=== PATIENT | female | born 1945 | race African-American/Black ===

== ENCOUNTER → 2023-08-16 14:25 | Outpatient (REF) | payer MEDICARE, SELFPAY | LOC: WDC 14:25 | PROVIDERS: ATTENDING PHYSICIAN Internal Medicine Hematology & Oncology; FAMILY PHYSICIAN Family Medicine | DX: Z12.31 Encounter for screening mammogram for malignant neoplasm of breast (principal); Z85.3 Personal history of malignant neoplasm of breast; C50.212 Malignant neoplasm of upper-inner quadrant of left female breast; C85.98 Non-Hodgkin lymphoma, unspecified, lymph nodes of multiple sites | CPT/HCPCS: 77063; 77067 ==

== ENCOUNTER 2023-12-11 11:17 | Emergency (ER) | payer MEDICARE, SELFPAY ==
[2023-12-11 11:18] VITALS: BP 129/96
[2023-12-11 11:31] VITALS: BMI 27.8
--- NOTE | 2023-12-11 11:33 | ED.GENMED ---
History of Present Illness
General
Chief Complaint: Headache
Time Seen by Provider: 12/11/23 11:30
History of Present Illness
History of Present Illness:
HPI: The patient presents with a headache that started about 24 hours ago. She was at [place] visiting her son when it started. The pain is described as a 'gnawing' around the left eye. She has had a remote history of migraines but this did not
feel like a migraine to her. She had some tingling in the distal extremities but she has had similar episodes in the past regarding the paresthesias. This is associated with nausea. She has some mild photophobia as well.
EXAM:
GENERAL: The patient appears in mild distress
HEENT: Moist oral mucosa
CARDIOVASCULAR: No murmurs, normal heart rate, regular rhythm, No chest wall tenderness
PULMONARY: No respiratory distress, breath sounds are clear and equal
ABDOMEN: Soft with no peritoneal signs, no tenderness
NEUROLOGIC: Excellent strength all extremities, no coordination deficits with excellent finger-nose testing, no sensory deficits
PSYCHIATRIC: Appropriate mental status, normal insight and judgement
EXTREMITIES: Nontender, no edema, moves all extremities equally
SKIN: No rash, no lesions
TIME OF INITIAL ENCOUNTER:
NUMBER AND COMPLEXITY OF PROBLEMS ADDRESSED AT THE ENCOUNTER
� Chronic conditions affecting care: History of diverticular disease, remote history of migraines
� Acute Exacerbation and/or Progression of Chronic Illness: This is an acute problem
� Differential Diagnosis includes: Intracranial hemorrhage, migraine, nonspecific headache, giant cell arteritis
AMOUNT AND/OR COMPLEXITY OF DATA TO BE REVIEWED AND ANALYZED
� I performed an independent evaluation of and my interpretation is:
EKG:
CT: CT of the brain shows no acute abnormality
X-rays:
Laboratory Studies: Sed rate is 15 therefore highly doubt giant cell arteritis, chemistries relatively unremarkable however the bicarb is slightly high at 33, CBC unremarkable
Other:
� Review of other/old records: The patient had colonoscopy in 2021
� Clinical information was obtained by an independent historian: Spoke to the at bedside
� Prescriptions/Medications Considered but not given:
� Further testing considered but not performed:
RISK OF COMPLICATIONS AND/OR MORBIDITY OR MORTALITY OF PATIENT MANAGEMENT
� Social determinants of health affecting care: Lives at home
� Discussion with other providers:
� Escalation of care including admission/observation vs risk of discharge considered: Brain CT does not show any acute abnormality and sed rate is low therefore doubt giant cell arteritis. The patient was given Reglan with
Benadryl along with Tylenol and on reassessment at 1 PM, she feels markedly improved.
Past History
Past History
ED Past Medical History: Other (Diverticulitis)
ED Past Surgical History: None
Social History
Tobacco: Non-smoker
Alcohol: Occasional
Personal:
Phy Exam
Physical Exam
Physical Exam:
See HPI
Course
Orders/Labs/Results
Orders:
Orders
12/11/23 11:39
CT Head W/o Iv Contrast Urgent
Comment:
Reason For Exam: new severe MUNOZ
12/11/23 11:41
0.9% Sodium Chloride 1000 ml [Nss] 1,000 ml IV BOLUS
Acetaminophen [Tylenol] 1,000 mg PO NOW STA
Diphenhydramine [Benadryl] 25 mg IV NOW STA
Metoclopramide [Reglan] 10 mg IV NOW STA
12/11/23 11:44
Basic Metabolic Panel Urgent
CBC/With ESR Urgent
Abnormal Lab Results
12/11/23
11:44
Hct 36.9 L %
(37.0-47.0)
MCV 75.9 L fL
(81.0-99.0)
MPV 10.6 H fL
(7.4-10.4)
Carbon Dioxide 33 H mmol/L
(22-30)
Glucose 118 H mg/dl
(70-99)
Calcium 10.6 H mg/dl
(8.4-10.2)
12/11/23 11:44
12/11/23 11:44
Vital Signs
Initial and Last Documented VS:
Initial Vital Signs
Temp Pulse Resp BP Pulse Ox
98.1 F 94 18 129/96 100
12/11/23 11:18 12/11/23 11:18 12/11/23 11:18 12/11/23 11:18 12/11/23 11:18
Last Documented Vital Signs
Temp Pulse Resp BP Pulse Ox
98.1 F 92 9 131/84 98
12/11/23 11:18 12/11/23 12:11 12/11/23 12:11 12/11/23 11:39 12/11/23 11:39
*Critical Care Note
Total Time (30-74mins, 75-104mins- exclusive of procedures): Not Applicable
ED Attending Note
-
Portions of this chart may have been created with voice recognition software.� Occasional wrong word or��sound alike� substitutions may have occurred due to the inherent limitations of voice recognition software.
Discharge Plan
Departure
Patient Disposition: Home (Routine Discharge)
Date of Disposition: 12/11/23
Time of Disposition: 13:00
Patient with high blood pressure during this ER visit?: Yes
Discharge Problem:
Headache
Prescriptions:
No Action
cyanocobalamin (vitamin B-12) 1,000 MCG tablet
1,000 mcg PO DAILY
Referrals:
Hector Abbasi MD [Active] - Follow up in 2-3 days
Butch Gamble MD [Family Provider] -
Activity Restrictions/Additional Instructions:
The cause of your symptoms is unclear but may be related to migraine as you did have some associated nausea and the lights were bothering you. We did give Reglan with Benadryl along with some Tylenol. Continue Tylenol for pain. I have given the
contact information for local neurologist as well.
Interventions
Interventions:
*Risk Screen - Suicide Last Done: 12/11/23 11:33
*General Assessment Last Done: 12/11/23 11:33
*Neglect/Abuse Screening Last Done: 12/11/23 11:33
ED- Fall Risk Assessment Last Done: 12/11/23 11:33
*ED COVID-19 Vaccine History Last Done: 12/11/23 11:33
ED- Neurological Assessment Last Done: 12/11/23 11:34
Discharge Date and Time
Print Language: UPPER [place]OR[place]
[2023-12-11 11:39] VITALS: BP 131/84
[2023-12-11] MEDS: REGLAN 10 MG IV (11:45)
[2023-12-11] MEDS: NSS 1000 IV (11:45)
[2023-12-11] MEDS: TYLENOL 1000 MG PO (11:45)
[2023-12-11] MEDS: BENADRYL 25 MG IV (11:45)
[2023-12-11 12:08] LABS: % Basophils 0.8 % (0-2); % Eosinophils 2.4 % (0-6); % Immature Granulocytes 0.4 % (0-0.5); % Lymphocytes 29.3 % (20.5-51.1); % Monocytes 8.1 % (1.7-9.3); Absolute Eosinophils 0.1 10^3/uL (0-0.7); Absolute Lymphocytes 1.5 10^3/uL (1.2-3.4); Absolute Monocytes 0.4 10^3/uL (0.1-0.6); Absolute Neutrophils 2.9 10^3/uL (1.4-6.5); Hematocrit 36.9 % (37.0-47.0); Hemoglobin 13.3 g/dL (12.0-16.0); Mean Corpuscular Hgb 27.4 pg (27.0-31.0); Mean Corpuscular Volume 75.9 fL (81.0-99.0); Mean Platelet Volume 10.6 fL (7.4-10.4); Nucleated Red Blood Cells % 0 %; Platelet Count 306 10^3/uL (130-400); Red Blood Cell Count 4.86 10^6/uL (4.20-5.40); Red Cell Dist. Width 13.1 % (11.5-14.5)
[2023-12-11 12:12] VITALS: BP 128/89
[2023-12-11 12:22] LABS: Blood Urea Nitrogen 8 mg/dl (7-17); Calcium 10.6 mg/dl (8.4-10.2); Carbon Dioxide 33 mmol/L (22-30); Chloride 101 mmol/L (98-107); Estimated Creatinine Clearance 50 ml/min; Glucose 118 mg/dl (70-99); Potassium 4.3 mmol/L (3.5-5.1); Sodium 144 mmol/L (135-145); eGFR > 60.00
[2023-12-11 12:42] LABS: Erythrocyte Sed Rate 15 mm/hour (0-20)
[2023-12-11 13:00] VITALS: BP 123/78
== END 2023-12-11 13:30 | disposition home or self-care (01) ==
LOC: EMR 11:17
PROVIDERS: EMERGENCY PHYSICIAN Emergency Medicine; FAMILY PHYSICIAN Family Medicine
DX: R51.9 Headache, unspecified (principal); R11.0 Nausea
CPT/HCPCS: 99284; 96374; 96375; 96361; 70450; 80048; 85025; 85652

== ENCOUNTER 2024-04-22 14:57 | Emergency (ER) | payer MEDICARE, SELFPAY ==
[2024-04-22 15:11] VITALS: BP 140/78
--- NOTE | 2024-04-22 15:13 | ED.GENMED ---
ED Provider Triage
-
Patient seen by provider in Triage?: Seen in Triage
Attestation: A medical screening examination has been initiated by a qualified medical provider. Based on the assessment performed at this time, it has been determined that an emergent medical condition may exist and the patient has been informed
that further medical evaluation and possible additional diagnostic testing may be needed.
HPI: 79-year-old female presenting to the ER with approximately 1 week of cold and upper respiratory like symptoms. Was recently traveling on a cruise. Unsure of any fevers. Also notes some pain underneath the left breast that seems to be
spasmodic and worse with movement. Hemodynamically stable. COVID, flu and chest x-ray ordered. EKG as well given the left-sided rib pain.
GENERAL: Alert , in no apparent distress
EYE: No visual abnormalities.
NECK: Trachea midline
ENT: No visible abnormalities.
LUNGS: No acute respiratory distress
NEUROLOGICAL: Alert and oriented
SKIN: Skin intact. No visible changes.
MUSCULOSKELETAL: Moving extremities normally
PSYCH: Normal and appropriate interaction.
This is a medical evaluation conducted in person to initiate diagnostic evaluation and provide initial therapeutics. Please see further documentation by the treating clinician.
History of Present Illness
General
Chief Complaint: Cold/Flu/URI Symptoms
Source: patient
Time Seen by Provider: 04/22/24 16:00
History of Present Illness
History of Present Illness:
79-year-old female with past medical history of breast cancer presenting to the emergency department for evaluation of cough, body aches, nausea, nasal congestion, sore throat, nausea and generally feeling unwell. She states today she started to
notice some discomfort around the left lateral rib area especially with movement and worse with coughing. Patient notes that she was recently on a cruise but is otherwise unaware of any other sick contacts. Denies any lower extremity edema or
hemoptysis. Patient is unsure of fevers but tactilely believe she likely had 1.
Past History
Past History
ED Past Medical History: Cancer and Other (Diverticulitis)
ED Past Surgical History: None
Social History
Tobacco: Non-smoker
Alcohol: Occasional
Drug: None
Personal:
Living: with family
Review of Systems
Review of Systems
All Other Systems: ROS reviewed and negative except as documented in HPI and ROS
Phy Exam
Physical Exam
Physical Exam:
GENERAL: Alert , in no apparent distress, intermittent nonproductive cough, ill-appearing but nontoxic
HEAD: NCAT
EYE: conjunctiva mildly injected
NECK: Supple
ENT: o/p clr, mmm.
CARDIAC: Regular rate and rhythm
LUNGS: Clear breath sounds bilaterally, no acute respiratory distress, no wheezes/rales/rhonchi
NEUROLOGICAL: Alert and oriented
SKIN: Warm and dry, skin intact.
MUSCULOSKELETAL: well perfused.
PSYCH: Normal and appropriate interaction.
Scores
Heart Failure Risk
Heart Failure Risk Score: Not Applicable
Heart Score for Chest Pain Patients
STEMI patient?: Not applicable
Withdrawal Assessment of Alcohol
Withdrawal Assessment Completed?: Not applicable
Course
Orders/Labs/Results
Orders:
Orders
04/22/24 15:12
Electrocardiogram (*1) Urgent
Reason for Study: Chest Pain
EKG- Treatment ONCE
04/22/24 15:21
COVID-19 Antigen Urgent
Source: Nasal Swab
Influenza A+B Rapid Molecular Urgent
TYLER Source: Nasal Swab
Specimen Description:
Vital Signs
Initial and Last Documented VS:
Initial Vital Signs
Temp Pulse Resp BP Pulse Ox
98.5 F 100 16 140/78 96
04/22/24 15:11 04/22/24 15:11 04/22/24 15:11 04/22/24 15:11 04/22/24 15:11
Last Documented Vital Signs
Temp Pulse Resp BP Pulse Ox
98.5 F 100 16 140/78 96
04/22/24 15:11 04/22/24 15:11 04/22/24 15:11 04/22/24 15:11 04/22/24 15:11
MDM/Problems Addressed
Differential Diagnosis Includes:
COVID, flu, pneumonia, other viral etiology, pleurisy, PE considered given her travel and breast cancer history
MDM/Problems Addressed:
79-year-old female presenting to the ER for evaluation of flulike symptoms over the last week. Recent travel noted. Patient is afebrile here although she is with multiple URI-like symptoms. COVID, flu, EKG and chest x-ray ordered. Disposition
pending
Chronic conditions affecting care: Cancer
*Pulse Oximetry
Patient hypoxic: no
*EKG
Heart Rate: 88
Rate: normal
Rhythm: sinus
[place]: left axis deviation
Ischemia: no ischemia
*Critical Care Note
Total Time (30-74mins, 75-104mins- exclusive of procedures): Not Applicable
Patient Management
Escalation/DeEscalation of care consider admission/obs:
Patient tested positive for the flu. She ultimately declines x-ray after she was notified of the flu positive test. Patient states she would just like to go home to rest. Unfortunately given the duration of her illness already she is not a
candidate for Tamiflu. Supportive measures advised. Stable for discharge and aware of return precautions.
ED Attending Note
-
Portions of this chart may have been created with voice recognition software.� Occasional wrong word or��sound alike� substitutions may have occurred due to the inherent limitations of voice recognition software.
Discharge Plan
Departure
Patient Disposition: Home (Routine Discharge)
Date of Disposition: 04/22/24
Time of Disposition: 16:10
Patient with high blood pressure during this ER visit?: No
Discharge Problem:
Influenza
Instructions: Flu in adults - Discharge instructions
Prescriptions:
No Action
cyanocobalamin (vitamin B-12) 1,000 MCG tablet
1,000 mcg PO DAILY
Interventions
Interventions:
*Risk Screen - Suicide Last Done: 04/22/24 15:11
*General Assessment Last Done: 04/22/24 15:11
*ED COVID-19 Vaccine History Last Done: 04/22/24 15:11
*Nursing Disposition Last Done: 04/22/24 17:06
Discharge Date and Time
Print Language: ITALIAN
[2024-04-22 15:47] LABS: COVID-19 Antigen Negative (Negative)
== END 2024-04-22 17:06 | disposition home or self-care (01) ==
LOC: EMR 14:57
PROVIDERS: Physician Assistant Medical; EMERGENCY PHYSICIAN Emergency Medicine; FAMILY PHYSICIAN Family Medicine
DX: J10.1 Influenza due to other identified influenza virus with other respiratory manifestations (principal); Z85.3 Personal history of malignant neoplasm of breast
CPT/HCPCS: 99283; 87502; 87811; 93005

== ENCOUNTER → 2024-05-04 08:40 | Outpatient (REF) | payer MEDICARE, SELFPAY | LOC: RAD 08:40 | PROVIDERS: ATTENDING PHYSICIAN Nurse Practitioner Family; FAMILY PHYSICIAN Family Medicine | DX: J40 Bronchitis, not specified as acute or chronic (principal) | CPT/HCPCS: 71046 ==

== ENCOUNTER 2024-05-15 05:53 | Emergency (ER) | payer MEDICARE, SELFPAY ==
[2024-05-15 05:54] VITALS: BP 134/86
[2024-05-15 06:31] LABS: % Basophils 0.4 % (0-2); % Eosinophils 2.2 % (0-6); % Immature Granulocytes 0.3 % (0-0.5); % Lymphocytes 17.1 % (20.5-51.1); % Monocytes 9.2 % (1.7-9.3); % Neutrophils 70.8 % (42.2-75.2); Absolute Eosinophils 0.2 10^3/uL (0-0.7); Absolute Lymphocytes 1.7 10^3/uL (1.2-3.4); Absolute Monocytes 0.9 10^3/uL (0.1-0.6); Absolute Neutrophils 6.9 10^3/uL (1.4-6.5); Hematocrit 34.7 % (37.0-47.0); Hemoglobin 12.2 g/dL (12.0-16.0); Mean Corp Hgb Conc. 35.2 g/dL (33.0-37.0); Mean Corpuscular Hgb 27.1 pg (27.0-31.0); Mean Corpuscular Volume 77.1 fL (81.0-99.0); Mean Platelet Volume 10.7 fL (7.4-10.4); Nucleated Red Blood Cells % 0 %; Platelet Count 291 10^3/uL (130-400); Red Cell Dist. Width 13.7 % (11.5-14.5); White Blood Cell Count 9.8 10^3/uL (4.8-10.8)
[2024-05-15 06:44] LABS: Urine Albumin 2+ (Neg - Trace); Urine Bilirubin Negative (Negative); Urine Character Slightly Cloudy (Clear); Urine Color Yellow; Urine Glucose Negative (Negative); Urine Ketone Negative (Negative); Urine Leukocyte 3+ (Negative); Urine Nitrite Negative (Negative); Urine Occult Blood 4+ (Negative); Urine Urobilinogen Negative (Neg - 1+)
[2024-05-15 06:46] LABS: ALT (SGPT) 13 U/L (0-35); AST (SGOT) 20 U/L (14-36); Albumin 4.2 g/dl (3.5-5.0); Alkaline Phosphatase 71 U/L (38-126); Blood Urea Nitrogen 7 mg/dl (7-17); Calcium 9.8 mg/dl (8.4-10.2); Carbon Dioxide 28 mmol/L (22-30); Chloride 103 mmol/L (98-107); Glucose 98 mg/dl (70-99); Potassium 4.1 mmol/L (3.5-5.1); Sodium 138 mmol/L (135-145); Total Protein 6.5 g/dl (6.3-8.2); eGFR > 60.00
[2024-05-15 07:46] LABS: Urine Squamous Cell >30 /LPF (Few)
[2024-05-15 07:47] LABS: Urine Urothelial Cell 21-25 /LPF (FEW)
[2024-05-15 07:48] LABS: Urine Bacteria Moderate (Negative); Urine Red Blood Cell >100 /HPF (0-2); Urine White Cell >100 /HPF (0-5)
[2024-05-15 07:49] LABS: Urine Amorphous Seen
--- NOTE | 2024-05-15 08:56 | ED.GENMED ---
History of Present Illness
General
Chief Complaint: Urinary Symptoms
Source: patient
Time Seen by Provider: 05/15/24 08:46
History of Present Illness
History of Present Illness:
79-year-old female with past medical history of previous breast cancer, diverticulitis, recently got over the flu presenting to the emergency department for evaluation of urinary frequency, urgency, suprapubic pressure/discomfort and a subjective
fever with chills last night. Patient denies any back or flank pain, vomiting, hematuria, bowel changes or any other concerns. Remote history of UTI in the past. Patient states that her primary care provider had placed her on cefuroxime shortly
after she was diagnosed with the flu with concern for possible bronchitis versus pneumonia but states she was unable to tolerate this after a few tablets and stopped taking. No other concerns at this time.
Past History
Past History
ED Past Medical History: Cancer and Other (Diverticulitis)
ED Past Surgical History: Other (Lumpectomy)
Social History
Tobacco: Non-smoker
Alcohol: Occasional
Drug: None
Personal:
Living: with family
Review of Systems
Review of Systems
All Other Systems: ROS reviewed and negative except as documented in HPI and ROS
Phy Exam
Physical Exam
Physical Exam:
GENERAL: Alert , in no apparent distress
EYE: clear conjunctiva b/l
HEAD: NCAT
ENT: mmm.
CARDIAC: Regular rate and rhythm .
LUNGS: Clear breath sounds bilaterally, no acute respiratory distress, no wheezes/rales/rhonchi
ABDOMEN: Soft, without focal tenderness, no r/g, no cvat
NEUROLOGICAL: Alert and oriented
SKIN: Warm and dry, skin intact.
MUSCULOSKELETAL: well perfused.
PSYCH: Normal and appropriate interaction.
Scores
Heart Failure Risk
Heart Failure Risk Score: Not Applicable
Heart Score for Chest Pain Patients
STEMI patient?: Not applicable
Withdrawal Assessment of Alcohol
Withdrawal Assessment Completed?: Not applicable
Sepsis
Sepsis Screening
Sepsis Assessment: Sepsis Ruled Out
Sepsis Screen
Sepsis Screen: Sepsis Ruled Out
Date: 05/15/24
Time: 09:16
Course
Orders/Labs/Results
Orders:
Orders
05/15/24 06:15
Complete Blood Count/With Diff Urgent
Comprehensive Metabolic Panel Urgent
05/15/24 06:20
Urinalysis Reflex To Culture Urgent
Date Specimen was Collected: 05/15/24
Time Specimen was Collected: 06:01
Urine Microscopic Reflex Cult Urgent
Urine Culture Urgent
TYLRE Source: U
Specimen Description:
Date Specimen was Collected: 05/15/24
Time Specimen was Collected: 06:01
Abnormal Lab Results
05/15/24 05/15/24
06:15 06:20
Hct 34.7 L %
(37.0-47.0)
MCV 77.1 L fL
(81.0-99.0)
MPV 10.7 H fL
(7.4-10.4)
Absolute Neuts (auto) 6.9 H 10^3/uL
(1.4-6.5)
Absolute Monos (auto) 0.9 H 10^3/uL
(0.1-0.6)
Lymphocytes % 17.1 L %
(20.5-51.1)
Ur Occult Blood Reflex 4+ A
(Negative)
Leukocyte Esterase Rfl 3+ A
(Negative)
Urine RBC >100 A /HPF
(0-2)
Urine WBC (Reflex) >100 A /HPF
(0-5)
Urine Bacteria (Reflex) Moderate A
(Negative)
Urine Albumin (Reflex) 2+ A
(Neg - Trace)
05/15/24 06:15
05/15/24 06:15
Vital Signs
Initial and Last Documented VS:
Initial Vital Signs
Temp Pulse Resp BP Pulse Ox
98.9 F 92 20 134/86 98
05/15/24 05:54 05/15/24 05:54 05/15/24 05:54 05/15/24 05:54 05/15/24 05:54
Last Documented Vital Signs
Temp Pulse Resp BP Pulse Ox
98.9 F 92 20 134/86 98
05/15/24 05:54 05/15/24 05:54 05/15/24 05:54 05/15/24 05:54 05/15/24 05:54
MDM/Problems Addressed
Differential Diagnosis Includes:
Cystitis, pyelonephritis, kidney stone/renal/ureteral colic
MDM/Problems Addressed:
79-year-old female presenting to the emergency department for evaluation of urinary symptoms that began on Wednesday, worsened throughout the rest of the weekend into today. Patient with worsening urinary frequency/urgency/dysuria. Recently was
prescribed cefuroxime for possible bronchitis but only took a couple of doses of this and was unable to tolerate due to GI side effects. Labs and urinalysis initiated on arrival. Patient has no leukocytosis, no irvin insufficiency and urinalysis
shows 4+ microscopic blood, 3+ leukocytes and greater than 100 WBCs per high-power field. Given patient's symptoms combined with her urinary findings I suspect cystitis to be the most likely diagnosis. Patient is afebrile here and hemodynamically
stable. No urine cultures on record here. Will prescribe Augmentin. Pyridium given for symptomatic relief and Zofran for her nausea. Advise close follow-up with primary care provider. Patient aware of return precautions to the ER.
*Pulse Oximetry
Patient hypoxic: no
*Critical Care Note
Total Time (30-74mins, 75-104mins- exclusive of procedures): Not Applicable
Data Reviewed
Review of Other/Old Records Reveals: Records
ED Attending Note
-
Portions of this chart may have been created with voice recognition software.� Occasional wrong word or��sound alike� substitutions may have occurred due to the inherent limitations of voice recognition software.
Discharge Plan
Departure
Patient Disposition: Home (Routine Discharge)
Date of Disposition: 05/15/24
Time of Disposition: 08:56
Patient with high blood pressure during this ER visit?: No
Discharge Problem:
Urinary tract infection
Instructions: Urinary Tract Infection, Adult (DC)
Prescriptions:
New
amoxicillin-pot clavulanate 875-125 mg tablet
1 tab PO BID 7 Days Qty: 14 0RF
phenazopyridine [Pyridium] 200 mg tablet
200 mg PO TID Qty: 8 0RF
ondansetron 4 mg tablet,disintegrating
4 mg PO TIDPRN PRN (Reason: nausea/vomiting) Qty: 8 0RF
No Action
cyanocobalamin (vitamin B-12) 1,000 MCG tablet
1,000 mcg PO DAILY
Interventions
Interventions:
*Risk Screen - Suicide Last Done: 05/15/24 05:54
*Neglect/Abuse Screening Last Done: 05/15/24 05:54
Discharge Date and Time
Print Language: [place]
== END 2024-05-15 09:37 | disposition home or self-care (01) ==
LOC: EMR 05:53
PROVIDERS: EMERGENCY PHYSICIAN Emergency Medicine; FAMILY PHYSICIAN Family Medicine
DX: N39.0 Urinary tract infection, site not specified (principal); Z85.3 Personal history of malignant neoplasm of breast; Z87.440 Personal history of urinary (tract) infections
CPT/HCPCS: 99283; 80053; 81003; 81015; 85025; 87077; 87086

== ENCOUNTER → 2024-08-16 13:52 | Outpatient (REF) | payer MEDICARE, SELFPAY | LOC: WDC 13:52 | PROVIDERS: ATTENDING PHYSICIAN Physician Assistant Medical; FAMILY PHYSICIAN Family Medicine | DX: Z12.31 Encounter for screening mammogram for malignant neoplasm of breast (principal) | CPT/HCPCS: 77063; 77067 ==

== ENCOUNTER → 2024-09-22 11:34 | Outpatient (REF) | payer MEDICARE, SELFPAY | LOC: RAD 11:34 | PROVIDERS: ATTENDING PHYSICIAN Nurse Practitioner Family; FAMILY PHYSICIAN Family Medicine | DX: M79.641 Pain in right hand (principal); M79.89 Other specified soft tissue disorders | CPT/HCPCS: 73110; 73130 ==